=== PATIENT | female | born 1945 | race Caucasian/White ===

== ENCOUNTER 2017-10-19 09:44 | Emergency (ER) | payer OTHER, BC ==
[~2017-10-19] VITALS: Ht 157.5 cm; Wt 53.0 kg
[~2017-10-19 09:44] MED LIST changes: -PERCOCET 5/31 TABLET PO; -ZOFRAN ODT4 MG PO
[2017-10-19 11:31] LABS: HEMATOCRIT 34.7 % (36.0-46.0); HEMOGLOBIN 12.1 G/DL (11.9-15.5); MCHC 34.9 G/DL (30.0-36.0); MCV 94.6 FL (83-99); PLATELET COUNT 207 K/uL (156-360); RBC DIS.WIDTH-CV 12.3 % (11.8-14.6); RED BLOOD COUNT 3.67 M/uL (3.80-5.20); WHITE BLOOD COUNT 7.5 K/uL (4.1-10.2)
[2017-10-19 11:41] LABS: CHLORIDE 107 mEq/L (99-109); POTASSIUM 3.7 mEq/L (3.7-5.4); SODIUM 140 mEq/L (136-147)
[2017-10-19 11:42] LABS: GLUCOSE 118 mg/dL (70-99)
[2017-10-19 11:46] LABS: CREATININE 0.7 mg/dL (0.6-1.3); GFR ESTIMATE (CALCULATED) > 59 mL/min/
[2017-10-19 11:47] LABS: UREA NITROGEN (BUN) 9 mg/dL (9-23)
[2017-10-19] MEDS ORDERED: PERCOCET 5/31 TABLET PO (13:57)
[2017-10-19] MEDS ORDERED: ZOFRAN ODT4 MG PO (13:57)
[2017-10-19 15:13] VITALS: BP 127/76
== END 2017-10-19 15:16 | disposition home or self-care (01) ==
LOC: EME 09:44
PROVIDERS: Emergency Medicine
DX: S52.611A Displaced fracture of right ulna styloid process, initial encounter for closed fracture (principal); S52.591A Other fractures of lower end of right radius, initial encounter for closed fracture; S01.01XA Laceration without foreign body of scalp, initial encounter; W01.0XXA Fall on same level from slipping, tripping and stumbling without subsequent striking against object, initial encounter
CPT/HCPCS: 70450; 72125; 73110; 80048; 85027; 93005; 99281; 99285; S0020

== ENCOUNTER → 2017-10-19 | Outpatient (CLI) | payer OTHER, BC ==
[~2017-10-19] VITALS: Ht 157.5 cm; Wt 52.0 kg
[~2017-10-19] MED LIST: ASPIR-LOW81 MG PO; ATORVASTATIN CA40 MG PO; CALTRATE 600600 MG PO; COMPLEX B-1001 EACH PO; CRESTOR10 MG PO; LIPITOR40 MG PO; MULTI-VITAMIN1 EAC4 PO; NAPROSYN500 MG PO; PERCOCET 5/31 TABLET PO; VITAMIN C500 M1 PO; ZOFRAN ODT4 MG PO
[2017-10-19 08:26] VITALS: BP 118/69
== END | disposition home or self-care (01) ==
LOC: IVINF 10-18 09:00
DX: M81.0 Age-related osteoporosis without current pathological fracture (principal)
CPT/HCPCS: 96365; J3489